=== PATIENT | female | born 1985 | race Caucasian/White ===

== ENCOUNTER 2020-11-22 19:50 | Emergency (ER) | payer SELFPAY ==
[~2020-11-22] VITALS: Ht 149.9 cm; Wt 44.0 kg
== END 2020-11-22 21:41 | disposition home or self-care (01) ==
LOC: FSED 20:22
DX: Z48.02 Encounter for removal of sutures (principal); Z98.890 Other specified postprocedural states; I10 Essential (primary) hypertension; J45.909 Unspecified asthma, uncomplicated; Z87.19 Personal history of other diseases of the digestive system
CPT/HCPCS: 99282